=== PATIENT | male | born 1975 | race Hispanic/Latino ===

== ENCOUNTER 2016-09-16 14:29 | Inpatient (IN) | payer SELFPAY ==
[2016-09-16 14:32] LABS: PLATELET COUNT 20 10^3/uL (120.0-450.0)
== END 2016-09-16 18:22 | disposition home or self-care (01) | DRG 951 ==
LOC: 2A 14:29
PROVIDERS: ADMIT Internal Medicine; ATTEND Internal Medicine
DX: Z02.89 Encounter for other administrative examinations (principal)